=== PATIENT | female | born 1955 | race Caucasian/White ===

== ENCOUNTER 2023-09-17 07:46 | Outpatient (CLI) | payer MEDICARE | END 2023-09-17 07:47 | disposition home or self-care (01) | LOC: CSHMAMMO 07:46 | PROVIDERS: ATTEND Family Medicine | DX: Z12.31 Encounter for screening mammogram for malignant neoplasm of breast (principal) | CPT/HCPCS: 77063; 77067 ==

== ENCOUNTER 2024-09-22 08:45 | Outpatient (CLI) | payer MEDICARE | END 2024-09-22 08:46 | disposition home or self-care (01) | LOC: CSHMAMMO 08:45 | PROVIDERS: ATTEND Family Medicine | DX: Z12.31 Encounter for screening mammogram for malignant neoplasm of breast (principal) | CPT/HCPCS: 77063; 77067 ==